=== PATIENT | male | born 1965 | race Two or more races ===

== ENCOUNTER 2019-07-31 10:33 | Outpatient (CLI) | payer OTHER | END 2019-07-31 11:25 | disposition home or self-care (01) | LOC: RX STUDY 10:33 | DX: R13.19 Other dysphagia (principal) ==

== ENCOUNTER 2019-08-06 13:33 | Outpatient (CLI) | payer OTHER ==
[2019-08-07] MEDS ORDERED: PROTONIX40 MG (13:07)
[2019-08-07] MEDS ORDERED: CIPRO500 MG (13:08)
[2019-08-07] MEDS ORDERED: SIMVASTATIN5 MG (13:08)
[2019-08-07] MEDS ORDERED: ZESTRIL2.5 MG (13:08)
[2019-08-07] MEDS ORDERED: TRILIPIX135 MG (13:09)
[2019-08-07] MEDS ORDERED: FLAGYL500MG (13:09)
== END 2019-08-06 13:50 | disposition home or self-care (01) ==
LOC: LAB 13:33
DX: R10.13 Epigastric pain (principal)

== ENCOUNTER 2019-08-07 07:42 | Outpatient (CLI) | payer OTHER ==
[2019-08-07] MEDS ORDERED: PROTONIX40 MG (13:07)
[2019-08-07] MEDS ORDERED: SIMVASTATIN5 MG (13:08)
[2019-08-07] MEDS ORDERED: CIPRO500 MG (13:08)
[2019-08-07] MEDS ORDERED: ZESTRIL2.5 MG (13:08)
[2019-08-07] MEDS ORDERED: TRILIPIX135 MG (13:09)
[2019-08-07] MEDS ORDERED: FLAGYL500MG (13:09)
== END 2019-08-07 07:58 | disposition home or self-care (01) ==
LOC: TOM 07:42
DX: R10.84 Generalized abdominal pain (principal)

== ENCOUNTER 2019-08-07 13:00 | Inpatient (IN) | payer OTHER ==
[~2019-08-07] VITALS: Ht 182.9 cm; Wt 115.2 kg
[2019-08-07] MEDS ORDERED: PROTONIX40 MG (13:07)
[2019-08-07] MEDS ORDERED: SIMVASTATIN5 MG (13:08)
[2019-08-07] MEDS ORDERED: ZESTRIL2.5 MG (13:08)
[2019-08-07] MEDS ORDERED: CIPRO500 MG (13:08)
[2019-08-07] MEDS ORDERED: FLAGYL500MG (13:09)
[2019-08-07] MEDS ORDERED: TRILIPIX135 MG (13:09)
[2019-08-09] MEDS ORDERED: SIMVASTATIN40 MG PO (14:55)
== END 2019-08-15 13:21 | disposition home or self-care (01) | DRG 373 ==
LOC: ER 13:00 → SEC-K 15:41 → MEDI 15:41 → SURG 08-08 15:07 → SURH 08-11 12:28
PROVIDERS: ADMIT Surgery
PROC: BW21YZZ Computerized Tomography (CT Scan) of Abdomen and Pelvis using Other Contrast (ICD-10-PCS; principal; 2019-08-10)
PROC: BW21YZZ Computerized Tomography (CT Scan) of Abdomen and Pelvis using Other Contrast (ICD-10-PCS; 2019-08-14)
DX: K35.890 Other acute appendicitis without perforation or gangrene (principal)

== ENCOUNTER → 2019-11-22 10:52 | Outpatient (CLI) | payer OTHER ==
[~2019-11-22 10:52] MED LIST: CIPRO500 MG; FLAGYL500MG; PROTONIX40 MG; SIMVASTATIN40 MG PO; SIMVASTATIN5 MG; TRILIPIX135 MG; ZESTRIL2.5 MG
== END | disposition home or self-care (01) ==
LOC: LAB 10:52
PROVIDERS: ATTEND Radiology Diagnostic Radiology
DX: N20.0 Calculus of kidney (principal)

== ENCOUNTER 2019-11-29 09:13 | Outpatient (CLI) | payer OTHER | END 2019-11-29 09:25 | disposition home or self-care (01) | LOC: TOM 09:13 | PROVIDERS: ATTEND Surgery | DX: K36 Other appendicitis (principal) ==

== ENCOUNTER 2020-01-01 05:45 | Day surgery (SDC) | payer OTHER | END 2020-01-01 14:15 | disposition home or self-care (01) | LOC: CIR.AMB 05:45 | PROVIDERS: ATTEND Surgery | DX: K36 Other appendicitis (principal); Z20.828 Contact with and (suspected) exposure to other viral communicable diseases ==

== ENCOUNTER 2020-01-04 09:46 | Emergency (ER) | payer OTHER ==
[~2020-01-04] VITALS: Ht 182.9 cm; Wt 103.0 kg
== END 2020-01-04 14:21 | disposition home or self-care (01) ==
LOC: ER 09:46
DX: R10.13 Epigastric pain (principal); Z20.828 Contact with and (suspected) exposure to other viral communicable diseases

== ENCOUNTER 2020-03-27 10:05 | Outpatient (CLI) | payer OTHER | END 2020-03-27 10:22 | disposition home or self-care (01) | LOC: TOM 10:05 | PROVIDERS: ATTEND Surgery | DX: K42.9 Umbilical hernia without obstruction or gangrene (principal) ==

== ENCOUNTER 2020-04-15 05:48 | Day surgery (SDC) | payer OTHER | END 2020-04-15 12:15 | disposition home or self-care (01) | LOC: CIR.AMB 05:48 | PROVIDERS: ATTEND Surgery | DX: K43.0 Incisional hernia with obstruction, without gangrene (principal); Z20.828 Contact with and (suspected) exposure to other viral communicable diseases ==